=== PATIENT | female | born 1980 | race Caucasian/White ===

== ENCOUNTER → 2016-06-19 | Outpatient (CLI) | payer BC ==
[~2016-06-19] MED LIST: CIPR1TAB11 PO; DOCU-149 PO; FERR1TAB13 PO; FEXO1TAB49 PO; METR-163 PO; MULT-513 PO; PRENTAB26 PO; SULF800T23 PO; ZNTT/150 PO
[2016-06-19 11:19] LABS: URINE APPEARANCE CLEAR (CLEAR); URINE BILIRUBIN NEG (NEG); URINE COLOR YELLOW; URINE NITRITE NEG (NEG); URINE SPECIFIC GRAVITY 1.008 (1.000-1.030); UROBILINOGEN NEG (NEG)
[2016-06-19 11:25] LABS: MANUAL MICROSCOPIC REQUIRED? NO; REVIEW REQ? NO
== END | disposition home or self-care (01) ==
LOC: C.LABSPEC 11:02
PROVIDERS: ATTEND Obstetrics & Gynecology
DX: O09.521 Supervision of elderly multigravida, first trimester (principal); Z3A.00 Weeks of gestation of pregnancy not specified

== ENCOUNTER → 2016-06-26 | Outpatient (CLI) | payer BC ==
[2016-06-26 12:44] LABS: BASO % 0.3 %; BASO ABS # 0.03 K/uL (0-0.2); COMPLETE YES; EOS % 1.4 %; HEMATOCRIT 37.5 % (37-47); IG% 0.1 %; LYMPH % 23.7 %; MEAN CELL VOLUME 92.4 fL (80-100); MEAN CORPUSCULAR HEMOGLOBIN 31.8 pg (25-34); MEAN CORPUSCULAR HGB CONC 34.4 g/dl (32-36); MEAN PLATELET VOLUME 9.6 fL (7.4-10.4); MONO % 9.4 %; NEUT % 65.1 %; PLATELET COUNT 320 K/uL (130-400); RED BLOOD COUNT 4.06 M/uL (4.2-5.4); WHITE BLOOD COUNT 9.27 K/uL (4.8-10.8)
[2016-06-29 12:23] LABS: CHLAMYDIA TRACH RNA*** NOT DETECTED (NOT DETECTED); GC (NEIS GONORRHOEAE)RNA** NOT DETECTED (NOT DETECTED)
== END | disposition home or self-care (01) ==
LOC: C.LAB1850 10:39
PROVIDERS: ATTEND Obstetrics & Gynecology
DX: O09.521 Supervision of elderly multigravida, first trimester (principal); Z3A.00 Weeks of gestation of pregnancy not specified

== ENCOUNTER → 2016-09-04 | Outpatient (CLI) | payer BC ==
[2016-09-04 13:24] LABS: GTGD 50 Grams
[2016-09-05 13:44] LABS: AFP MULTIPLE OF MEDIAN 0.67; AFPTS GESTATIONAL AGE 18.6 WEEKS; AFPTS INSULIN DEP DIABETIC? NO; AFPTS MATERNAL WT 130 LBS; ALPHA-FETOPROTEIN RACE CAUCASIAN=W; HISTORY OF NTD NO; REPEAT SAMPLE? NO
== END | disposition home or self-care (01) ==
LOC: C.LAB1850 10:42
PROVIDERS: ATTEND Obstetrics & Gynecology
DX: O09.522 Supervision of elderly multigravida, second trimester (principal); Z3A.00 Weeks of gestation of pregnancy not specified

== ENCOUNTER → 2016-11-15 | Outpatient (CLI) | payer BC ==
[~2016-11-15] MED LIST changes: -DOCU-149 PO; -FERR1TAB13 PO; -PRENTAB26 PO; -ZNTT/150 PO
[2016-11-15 11:43] LABS: URINE APPEARANCE CLEAR (CLEAR); URINE BILIRUBIN NEG (NEG); URINE COLOR YELLOW; URINE NITRITE NEG (NEG); URINE SPECIFIC GRAVITY 1.016 (1.000-1.030); UROBILINOGEN NEG (NEG)
[2016-11-15 11:46] LABS: MANUAL MICROSCOPIC REQUIRED? NO; REVIEW REQ? NO
[2016-11-15 11:52] LABS: GTGD 50 Grams
== END | disposition home or self-care (01) ==
LOC: C.LAB1850 09:11
PROVIDERS: ATTEND Obstetrics & Gynecology
DX: O09.522 Supervision of elderly multigravida, second trimester (principal); Z3A.00 Weeks of gestation of pregnancy not specified

== ENCOUNTER 2017-02-05 03:46 | Outpatient (CLI) | payer BC ==
[2017-02-05] MEDS ORDERED: PRENTAB26 PO (20:46)
[2017-02-05] MEDS ORDERED: ZNTT/150 PO (20:48)
[2017-02-08] MEDS ORDERED: FERR1TAB13 PO (06:53)
[2017-02-08] MEDS ORDERED: DOCU-149 PO (06:53)
== END 2017-02-05 07:25 | disposition home or self-care (01) ==
LOC: C.LD 03:46 → C.OPB 03:46
PROVIDERS: ATTEND Obstetrics & Gynecology
DX: O62.9 Abnormality of forces of labor, unspecified (principal); O09.523 Supervision of elderly multigravida, third trimester; Z3A.40 40 weeks gestation of pregnancy

== ENCOUNTER → 2017-02-11 | Outpatient (CLI) | payer BC ==
[~2017-02-11] MED LIST changes: -CIPR1TAB11 PO; +DOCU-149 PO; +FERR1TAB13 PO; -METR-163 PO; -SULF800T23 PO; +ZNTT/150 PO
[2017-02-11 16:28] LABS: URINE APPEARANCE CLOUDY (CLEAR); URINE BILIRUBIN NEG (NEG); URINE COLOR ORANGE; URINE EPITHELIAL CELL AUTO 20-30 /lpf (0-5); URINE NITRITE NEG (NEG); URINE SPECIFIC GRAVITY 1.005 (1.000-1.030); UROBILINOGEN NEG (NEG)
[2017-02-11 16:29] LABS: MANUAL MICROSCOPIC REQUIRED? NO; REVIEW REQ? YES
[2017-02-11 16:31] LABS: SULFASALICYLIC ACID POS (NEG)
== END | disposition home or self-care (01) ==
LOC: C.LABSPEC 15:42
PROVIDERS: ATTEND Obstetrics & Gynecology
DX: O09.513 Supervision of elderly primigravida, third trimester (principal); Z3A.00 Weeks of gestation of pregnancy not specified

== ENCOUNTER 2019-06-28 13:36 | Inpatient (IN) ==
[2019-06-28] MEDS ORDERED: OXYTOCIN 30 UNITS/500 ML BAG IV PRN ×2 (16:19→21:28)
[2019-06-28] MEDS: LACTATED RINGER'S 1,000 ML IV PRN ×2 (16:30→17:40)
[2019-06-28 16:48] LABS: Hematocrit (blood only) 30.9 % (37-47); Hemoglobin 10.1 g/dL (12.0-16.0); Mean Corpuscular Hemoglobin 27.9 pg (25-34); Mean Corpuscular Volume 85.4 fL (80-100); Mean Platelet Volume 9.8 fL (7.4-10.4); Platelet Count 393 K/uL (130-400); RDW Coefficient of Variation 13.9 % (11.5-14.5); RDW Standard Deviation 43.1 fL (36.4-46.3); Red Blood Count 3.62 M/uL (4.2-5.4); White Blood Count 14.37 K/uL (4.8-10.8)
[2019-06-28] MEDS ORDERED: ePHEDrine sulfate 50 MG/ML AMP ONE (16:50)
[2019-06-28] MEDS ORDERED: fentaNYL 2MCG/ML ROPIV 1.25MG/ML 100 ML BAG EPI ONE (16:51)
[2019-06-28] MEDS ORDERED: fentaNYL citrate 100 MCG/2 ML VIAL ONE (16:51)
[2019-06-28] MEDS ORDERED: BUPIVACAINE 0.25% 30 ML VIAL ONE (16:51)
[2019-06-28 17:17] LABS: Mean Corpuscular Hgb Conc 32.7 g/dL (32-36)
[2019-06-28] MEDS ORDERED: DiphenhydrAMINE HCL 50 MG/ML VIAL IV PRN (18:07)
[2019-06-28] MEDS ORDERED: fentaNYL 2MCG/ML ROPIV 1.25MG/ML 100 ML BAG EPI PRN (18:07)
[2019-06-28] MEDS ORDERED: ePHEDrine sulfate 50 MG/ML AMP IV PRN (18:07)
[2019-06-28] MEDS ORDERED: NALBUPHINE HCL INJ 10 MG/ML AMP IV PRN (18:07)
[2019-06-28] MEDS ORDERED: NALOXONE HCL 0.4 MG/1 ML VIAL/CARP IV PRN (18:07)
[2019-06-28] MEDS ORDERED: NALOXONE HCL 1 MG in SODIUM CHLORIDE 0.9% 1000ML 1,000 ML IV PRN (18:07)
--- NOTE | 2019-06-28 18:07 | Anesthesiology Consultation ---
Date of Service June 28, 2019 Assessment & Plan (1) Encounter for pre-operative examination: Chart Review Chart Review: Patient NOT seen in Pre Admission Testing and Acceptable Risk for Labor Epidural Consults Requested none ASA ASA2 Proposed Anesthesia Anesthesia Type: Labor Epidural Risk / Benefits Reviewed With: PT / POA / Parent / Guardian, Accepts Plan and Informed Consent Obtained History Height/Weight Height: 5 ft Weight: 69.853 kg Allergies Allergy/AdvReac Type Severity Reaction Status Date / Time gentamicin Allergy Mild Rash Verified 06/28/19 14:26 Penicillins Allergy Mild Hives Verified 06/28/19 14:26 Medications Home Medications Medication Instructions Recorded Confirmed Last Taken prenat.vits,urbano,lcv-pnlh-pkiht 1 tab PO DAILY 11/21/18 06/28/19 06/28/19 09:00 Active Medications Generic Name Dose Route Start Last Admin Trade Name Freq PRN Reason Stop Dose Admin Lactated Ringer's 1,000 mls @ 125 mls/hr 06/28/19 16:19 06/28/19 17:40 Lr IV 06/30/19 16:18 125 mls/hr .Q8H PRN Administration L&D Protocol Protocol NPO Date Last Intake of Fluids: 06/28/19 Time Last Intake of Fluids: 12:00 Date Last Intake of Solids: 06/28/19 Time Last Intake of Solids: 17:00 Past Medical History Medical History FABY (stress urinary incontinence, female) (Inactive) Varicella Exercise / Class Metabolic Activity II 4-5 Yardwork/Stairs/Walk up hill Past Family History Family History Mother Diabetes Father Hypertension Colorectal cancer Son Family history of von Willebrand disease Past Surgical History Surgical History S/P dilatation and curettage S/P wisdom tooth extraction Past Anesthesia History No Hx of Anesthesia Complications and No Family Hx of Anesthesia Complications History of PONV No Hx of PONV and No Hx of Motion Sickness Social History Smoking Status: Never smoker Hx Alcohol Use: No Hx Substance Use: No Physical Exam Vital Signs Last Vital Signs Temp 37.0 C 06/28/19 17:57 Pulse 89 06/28/19 18:03 Resp 20 06/28/19 17:57 BP 103/59 L 06/28/19 18:03 Pulse Ox 98 06/28/19 18:01 ENMT Mouth: no dentition abnormality Thyromental Distance: > or= 3.5 Finger Breadths Mallampati Class: II Neck normal visual inspection Respiratory normal respiratory effort Auscultation: lungs clear to auscultation bilaterally Cardiovascular Rate/Rhythm: regular rate and regular rhythm Psychiatric Orientation: alert Testing Laboratory Results 06/28/19 16:38
--- NOTE | 2019-06-28 21:17 | Delivery Summary ---
Vaginal Delivery Summary Date of Service June 28, 2019 Vaginal Delivery Summary Patient delivered vaginally over a 2nd degree perineum tear. Baby delivered in occiput anterior position. Mouth and nares then suctioned with bulb. nuchal cordx1, , clamped after delivery of head and cut as tight, fluid was minimal meconium. Baby delivered with gentle traction, no excess force used. Live vigorous . Cord clamped and cut. Gases obtained and cord blood obtained. Placenta removed with traction. Pitocin started and uterine tone improved. Bleeding improved. Sponge and instrument counts correct. tear repaired with 3-0 vicryl EBL= 150ml
[2019-06-28] MEDS ORDERED: OXYCODONE/ACETAMINOPHEN 5mg/325mg TAB PO PRN (21:28)
[2019-06-28] MEDS ORDERED: SUPERCREAM 0.870% 15 GM JAR EXT PRN (21:28)
[2019-06-28] MEDS ORDERED: HYDROCORTISONE ACETATE 25 MG SUPP PR PRN (21:28)
[2019-06-28] MEDS ORDERED: BENZOCAINE 20% AER SPR 82.5 GM CAN EXT PRN (21:28)
[2019-06-28] MEDS ORDERED: DIPHTHERIA/TETANUS/PERTUSSIS 0.5 ML SYR/VIAL IM ONE (21:28)
[2019-06-28] MEDS ORDERED: ACETAMINOPHEN 325 MG TAB PO PRN (21:28)
[2019-06-28 21:53] LABS: Base Excess Cord Venous Blood -1.9 mEq/L (-7.7-1.9); Cord Venous Blood HCO3 22 mmol/L (18.4-26.8); Cord Venous Blood PCO2 34 mmHg (30.4-57.2); Cord Venous Blood PO2 26 mmHg (14.1-43.3); Cord Venous Blood pH 7.42 (7.20-7.44)
[2019-06-28 21:58] LABS: Base Excess Cord Arterial Bld -2.5 mEq/L (-9-1.8); CO2 Cord Arterial Blood 41 mmHg (39.1-73.5); HCO3 Cord Arterial Blood 23 mmol/L (19.7-28.5); PO2 Cord Arterial Blood 24 mmHg (4.1-31.7); pH Cord Arterial Blood 7.36 (7.1-7.38)
[2019-06-28 22:00] LABS: Oxygen Sat Cord Arterial Blood < 60.0 % (<60)
[2019-06-28] MEDS: IBUPROFEN 600 MG TAB PO PRN (23:39)
[2019-06-29] MEDS: IBUPROFEN 600 MG TAB PO PRN ×3 (05:04→18:54)
[2019-06-29 06:19] LABS: Hematocrit (blood only) 26.8 % (37-47); Hemoglobin 8.7 g/dL (12.0-16.0); Mean Corpuscular Hemoglobin 27.6 pg (25-34); Mean Corpuscular Hgb Conc 32.5 g/dL (32-36); Mean Corpuscular Volume 85.1 fL (80-100); Mean Platelet Volume 9.8 fL (7.4-10.4); Platelet Count 323 K/uL (130-400); RDW Coefficient of Variation 14.1 % (11.5-14.5); RDW Standard Deviation 43.4 fL (36.4-46.3); Red Blood Count 3.15 M/uL (4.2-5.4); White Blood Count 15.53 K/uL (4.8-10.8)
--- NOTE | 2019-06-29 07:02 | Obstetrical Progress Note ---
Date of Service June 29, 2019 Assessment & Plan (1) state: PPD # 0.5. Hb 8.7. Discussed Fe. Ambulate, cont current care Subjective Ambulation: ambulating normally Voiding: no voiding problems Passing Gas:: Yes Diet Tolerance:: regular diet Lochia:: Small Feeding Type:: breast feeding Current Pain Level(1-10): 2 Physical Exam Constitutional WD/WN, vitals as above Genitourinary normal external appearance Results & Data Vital Signs (Past 12 Hours) Vital Signs Temp Pulse Pulse Pulse Resp BP BP 06/29/19 04:30 98.1 F 99 H 16 06/28/19 23:30 97.9 F 80 16 113/75 06/28/19 23:20 89 113/66 06/28/19 23:05 89 113/68 06/28/19 22:50 85 18 110/72 06/28/19 22:35 71 106/69 06/28/19 22:20 86 18 104/84 06/28/19 22:05 80 110/70 06/28/19 21:50 92 H 18 122/64 06/28/19 21:35 85 18 139/89 06/28/19 21:20 97.9 F 89 18 111/72 06/28/19 21:16 86 06/28/19 21:11 82 06/28/19 21:06 86 06/28/19 21:05 83 109/68 06/28/19 21:01 105 H 06/28/19 20:56 91 H 06/28/19 20:51 88 06/28/19 20:50 98.1 F 88 18 113/74 06/28/19 20:46 71 06/28/19 20:41 69 06/28/19 20:36 74 06/28/19 20:35 79 113/70 06/28/19 20:31 68 06/28/19 20:26 71 06/28/19 20:21 74 06/28/19 20:20 71 125/71 06/28/19 20:16 76 06/28/19 20:11 73 06/28/19 20:06 71 06/28/19 20:05 71 110/67 06/28/19 20:01 76 06/28/19 19:56 73 06/28/19 19:51 79 111/72 06/28/19 19:46 71 06/28/19 19:41 72 06/28/19 19:36 73 06/28/19 19:35 78 114/58 L 06/28/19 19:31 81 06/28/19 19:26 75 06/28/19 19:21 71 06/28/19 19:20 73 128/66 06/28/19 19:16 72 06/28/19 19:11 68 06/28/19 19:06 78 06/28/19 19:05 98.1 F 60 18 121/63 06/28/19 19:01 81 BP Pulse Ox 06/29/19 04:30 96/59 L 06/28/19 23:30 06/28/19 23:20 06/28/19 23:05 06/28/19 22:50 06/28/19 22:35 06/28/19 22:20 06/28/19 22:05 06/28/19 21:50 06/28/19 21:35 06/28/19 21:20 06/28/19 21:16 98 06/28/19 21:11 98 06/28/19 21:06 98 06/28/19 21:05 06/28/19 21:01 98 06/28/19 20:56 98 06/28/19 20:51 98 06/28/19 20:50 06/28/19 20:46 99 06/28/19 20:41 100 06/28/19 20:36 97 06/28/19 20:35 06/28/19 20:31 97 06/28/19 20:26 97 06/28/19 20:21 97 06/28/19 20:20 06/28/19 20:16 99 06/28/19 20:11 98 06/28/19 20:06 99 06/28/19 20:05 06/28/19 20:01 99 06/28/19 19:56 99 06/28/19 19:51 99 06/28/19 19:46 100 20 19:41 100 06/28/19 19:36 100 06/28/19 19:35 06/28/19 19:31 100 06/28/19 19:26 100 06/28/19 19:21 100 06/28/19 19:20 06/28/19 19:16 100 06/28/19 19:11 99 06/28/19 19:06 99 06/28/19 19:05 06/28/19 19:01 97
[2019-06-29] MEDS: DOCUSATE SODIUM 100 MG CAP PO SCH ×2 (07:15→20:39)
[2019-06-29] MEDS: PRENATAL VITAMIN 1 TAB PO SCH (07:15)
[2019-06-29] MEDS ORDERED: NON-FORMULARY MEDICATION (Prenat.Vits,Cal,Min-Iron-Folic 1 TAB) PO SCH (09:00)
--- NOTE | 2019-06-29 10:25 | Anesthesia Procedure Note ---
Date of Service June 29, 2019 Anesthesia Post Epidural Note Vital Signs Vital Signs: Temp Pulse Resp BP Pulse Ox 36.6 C 70 18 107/72 96 06/29/19 07:15 06/29/19 07:15 06/29/19 07:15 06/29/19 07:15 06/29/19 07:15 Pain Intensity Abdomen: Pain Intensity: 0 Episiotomy/Laceration: Pain Intensity: 2 Notes Mental Status: alert / awake / arousable and participated in evaluation Nausea / Vomiting: adequately controlled Pain: adequately controlled Airway Patency, RR, SpO2: stable & adequate BP & HR: stable & adequate Hydration State: stable & adequate Neuraxial Anesthesia: was administered and sensory block resolved Anesthetic Complications: no major complications apparent and Pt Satisfied with anesthetic care Epidural: Removed without complications and With tip intact Notes: Epidural site clean, dry and intact. No signs of edema, erythema or bruising at insertion site. Pt instructed to request anesthesia if she has residual lower extremity numbness or if she develops lower extremity pain or weakness, back pain or headache.
[2019-06-29] MEDS: FERROUS SULFATE 325 MG TAB PO SCH (11:52)
[2019-06-29] MEDS ORDERED: bisacodyL 5 MG TABEC PO SCH (20:00)
[2019-06-30] MEDS ORDERED: bisacodyL 10 MG SUPP PR PRN (07:00)
[2019-06-30 07:03] LABS: Hematocrit (blood only) 28.6 % (37-47); Hemoglobin 9.1 g/dL (12.0-16.0)
--- NOTE | 2019-06-30 07:54 | Obstetrical Progress Note ---
Date of Service June 30, 2019 Assessment & Plan (1) state: stable, routine care. f/u 6wks pp check, instructions reviewed. pt tells me story that in the first wk pp, concern raised after last delivery of mild endometritis or engorgement and given abx. her presentation was to office with fever and mild abd pain and breast pain. i rec she monitor for sx and call if recur. she will have bladder scan after next void and if needed may require man drainage, leg bag, for home. Subjective Ambulation: ambulating normally Voiding: voiding difficulty (feels like she is not sure she is emptying) Diet Tolerance:: regular diet Lochia:: Small Feeding Type:: breast feeding not sure about her voiding. she recalls having sensation of not knowing when she needed to void after last delivery. Physical Exam Constitutional WD/WN, vitals as above Respiratory normal respiratory effort, lungs clear to auscultation Cardiovascular Rate/Rhythm: regular rate and regular rhythm Gastrointestinal (Abdomen) Percussion/Palpation: abdomen soft; abdomen nontender ff at 2 down nt Musculoskeletal nt calves Neurologic grossly normal Psychiatric A+Ox3, euthymic affect Results & Data Vital Signs (Past 12 Hours) Vital Signs Temp Pulse Resp BP 06/29/19 23:00 97.9 F 87 16 102/58 L
[2019-06-30] MEDS: DOCUSATE SODIUM 100 MG CAP PO SCH (08:14)
[2019-06-30] MEDS: PRENATAL VITAMIN 1 TAB PO SCH (08:14)
[2019-06-30] MEDS: IBUPROFEN 600 MG TAB PO PRN (08:14)
[2019-06-30] MEDS: FERROUS SULFATE 325 MG TAB PO SCH (09:38)
== END 2019-06-30 17:30 | disposition home or self-care (01) | DRG 807 ==
LOC: OPB 13:36 → 4S1 13:37 → 4S2 23:38